=== PATIENT | male | born 1985 | race Caucasian/White ===

== ENCOUNTER 2025-09-13 08:19 | Emergency (ER) | payer SELFPAY ==
[2025-09-13 08:24] VITALS: BP 123/82; PULSE 66; TEMP 36.4; O2SAT 97; BMI 25.1
[2025-09-13] MEDS: FAMOTIDINE/PF 20 MG/2 ML VIAL IV (08:43)
[2025-09-13] MEDS: 0.9 % SODIUM CHLORIDE 1,000 ML 1000 ML IV (08:43)
--- OUTSIDE RECORDS SUMMARY | 2025-09-13 08:43 | XMS_ITS | Clinical Summary ---
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 Role Phone Trace Kenny MD Primary Care Provider [phone] Social History Tobacco Use Types Packs/Day Years Used Date Smoking Tobacco: Never Assessed Sex and Gender Information Value Date Recorded Sex Assigned at Not on file Legal Sex Male 6:40 PM EDT Gender Identity Not on file Sexual Orientation Not on file Last Filed Vital Signs Vital Sign Reading Time Taken Comments Blood Pressure 122/82 02/10/2022 12:00 PM EDT Pulse - - Temperature - - Respiratory Rate - - Oxygen Saturation - - Inhaled Oxygen Concentration - - Weight 76.7 kg (169 lb 3.2 oz) 02/10/2022 12:00 PM EDT Height 175.3 cm (5' 9 ) 02/10/2022 12:00 PM EDT Body Mass Index 24.99 02/10/2022 12:00 PM EDT Plan of Treatment Not on file Care Teams Elementary Classroom Teacher Relationship Specialty Start Date End Date Trace Kenny MD [address] [place] [id number] PCP - General Family Medicine 04/07/23
[2025-09-13 08:49] LABS: Hematocrit 45.6 % (42.0-54.0); Hemoglobin 15.8 g/dL (14.0-18.0); Immature Granulocytes Abs Auto 0.04 10^3/uL (0.00-0.03); Immature Granulocytes Pct Auto 0.5 % (0.0-0.5); Lymphocytes Absolute Auto 2.5 10^3/uL (1.2-3.8); Mean Corpuscular HGB Conc 34.6 g/dL (29.9-35.2); Mean Corpuscular Hemoglobin 28.0 pg (25.9-34.0); Mean Corpuscular Volume 80.7 fL (80.0-94.0); Platelet Count 318 10^3/uL (150-450); Red Blood Count 5.65 10^6/uL (4.70-6.10); White Blood Count 8.9 10^3/uL (4.0-11.0)
[2025-09-13 08:54] LABS: Alanine Aminotransferase 49 U/L (16-63); Albumin Globulin Ratio 0.9; Albumin Level 3.8 g/dL (3.4-5.0); Alkaline Phosphatase 85 U/L (46-116); Anion Gap 15.9; Aspartate Amino Transferase 31 U/L (15-37); Blood Urea Nitrogen 13.0 mg/dL (7.0-18.0); Calcium 8.9 mg/dL (8.5-10.1); Carbon Dioxide 25.8 mmol/L (21.0-32.0); Chloride 99 mmol/L (98-107); Estimated GFR (African America >60 (>=60 mL/min/1.73m^2); Estimated GFR (Non-African Ame >60 (>=60 mL/min/1.73m^2); Globulin 4.3 g/dL; Glucose 106 mg/dL (74-106); Lipase 21.0 U/L (16.0-77.0); Potassium 3.7 mmol/L (3.5-5.1); Sodium 137 mmol/L (136-145); Total Protein 8.1 g/dL (6.4-8.2)
--- NOTE | 2025-09-13 08:59 | XR_ITS ---
XR/XR abdomen 1V IMPRESSION: No acute process. Impression dictated by: Shahram Staton Jr., D.O. 09/13/2025 9:33 AM Dictation [facility] Electronically authenticated by: [id number] Y Date: 09/13/2025 09:33
--- NOTE | 2025-09-13 09:43 | ED.NAVMDI1 ---
HPI - Nausea/Vomiting/Diarrhea General Chief complaint: Nausea/Vomiting/Diarrhea Stated complaint: NAUSEA, VOMITING Time Seen by Provider: 09/13/25 08:30 Source: patient Mode of arrival: walk-in Limitations: no limitations History of Present Illness HPI Narrative: The patient is a 40-year-old male presented to the ER with a 1 day history of nausea vomiting that started last night after he has been exposed to his son who had similar symptoms, the patient mentioned that multiple family members as well has similar symptoms but he is only 1 definitely able to keep anything in The patient denies any fever chills or any other concern he is complaining some epigastric discomfort that have started after a few episode of vomiting he did mention some streaks of blood in his vomiting after multiple times No other concerns Related Data Previous Rx's ?Medication ?Instructions ?Recorded famotidine 20 mg tablet (Pepcid) 20 mg PO BID #20 tabs 09/13/25 ondansetron 4 mg disintegrating 4 mg PO Q8H PRN nausea and 09/13/25 tablet vomiting 48 hours #10 tabs Allergies Allergy/AdvReac Type Severity Reaction Status Date / Time naproxen (From Aleve) Allergy Intermediate Rash Verified 09/13/25 08:24 Review of Systems ROS Status of ROS 10 or more systems reviewed and unremarkable except as noted in history and below PFSH PFSH Social History Little interest or pleasure in doing things: not at all Feeling down, depressed, or hopeless: not at all Exam Narrative Exam Narrative: Nurses notes and vital signs reviewed and patient is not hypoxic. General: Well-appearing and in no apparent distress. Skin: Warm, dry, no pallor noted. No rash. Head: Normocephalic, atraumatic. Neck: Supple, non-tender. Cardiovascular: Regular Rate and Rhythm without murmur, gallop or rub. Respiratory: No accessory muscle use or respiratory distress. Lungs are clear to auscultation, no wheezing, rales or rhonchi Chest Wall: no tenderness Back: No midline thoracic or lumbar vertebral tenderness. No CVA tenderness Musculoskeletal: normal ROM, no calf or popliteal tenderness, no lower extremity edema/swelling GI: Abdomen is soft, non-distended. Normal bowel sounds. No masses appreciated. No tenderness to palpation. No rebound, guarding, or rigidity noted. Neurological: A&O x4. No cranial nerve dysfunction observed. No truncal ataxia. Moves all extremities. Sensation intact. Psychiatric: Cooperative and interactive. Normal mood and affect. Constitutional Vital Signs, click to edit/add: Last Vital Signs Temp 97.5 F L 09/13/25 08:24 Pulse 66 09/13/25 08:24 Resp 18 09/13/25 08:24 BP 123/82 09/13/25 08:24 Pulse Ox 97 09/13/25 08:24 O2 Del Method Room Air 09/13/25 08:24 Course Vital Signs Vital signs: Vital Signs Temperature 97.5 F L 09/13/25 08:24 Pulse Rate 66 09/13/25 08:24 Respiratory Rate 18 09/13/25 08:24 Blood Pressure 123/82 09/13/25 08:24 Pulse Oximetry 97 09/13/25 08:24 Oxygen Delivery Method Room Air 09/13/25 08:24 Temperature 97.5 F L 09/13/25 08:24 Pulse Rate 66 09/13/25 08:24 Respiratory Rate 18 09/13/25 08:24 Blood Pressure 123/82 09/13/25 08:24 Pulse Oximetry 97 09/13/25 08:24 Oxygen Delivery Method Room Air 09/13/25 08:24 MDM - Nausea/Vomiting/Diarrhea MDM Narrative Medical decision making narrative: CBC and chemistry showed no acute pathology The patient presentation is concerning mostly for gastroenteritis symptoms The patient did had some epigastric discomfort and that with x-ray of the abdomen obtained that showed no acute pathology or perforation Patient provided IV fluid hydration. Zofran and Pepcid after which she was feeling much better The patient instructed to come back in case any worsening symptoms or new symptoms to the ER Patient to start with liquid diet then treat his diet with time. But I did also explain to the patient that in case of any worsening or any new symptoms the patient to come back to the ER as the initial evaluation shows no acute pathology but there is multiple pathology can present with nausea and vomiting Lab Data Labs: Lab Results 09/13/25 Range/Units 08:30 WBC 8.9 (4.0-11.0) 10^3/uL RBC 5.65 (4.70-6.10) 10^6/uL Hgb 15.8 (14.0-18.0) g/dL Hct 45.6 (42.0-54.0) % MCV 80.7 (80.0-94.0) fL MCH 28.0 (25.9-34.0) pg MCHC 34.6 (29.9-35.2) g/dL RDW 12.9 (11.0-15.0) % Plt Count 318 (150-450) 10^3/uL MPV 10.5 (9.5-13.5) fL Neut % (Auto) 55.0 (43.0-75.0) % Lymph % (Auto) 27.7 (20.5-60.0) % [place] % (Auto) 14.0 H (1.7-12.0) % Eos % (Auto) 1.9 (0.9-7.0) % Baso % (Auto) 0.9 (0.2-2.0) % Neut # (Auto) 4.9 (1.4-6.5) 10^3/uL Lymph # (Auto) 2.5 (1.2-3.8) 10^3/uL [place] # (Auto) 1.2 H (0.3-0.8) 10^3/uL Eos # (Auto) 0.2 (0.0-0.7) 10^3/uL Baso # (Auto) 0.1 (0.0-0.1) 10^3/uL Abs Immat Gran (auto) 0.04 H (0.00-0.03) 10^3/uL Imm/Tot Granulo (auto) 0.5 (0.0-0.5) % Sodium 137 (136-145) mmol/L Potassium 3.7 (3.5-5.1) mmol/L Chloride 99 (98-107) mmol/L Carbon Dioxide 25.8 (21.0-32.0) mmol/L Anion Gap 15.9 BUN 13.0 (7.0-18.0) mg/dL Creatinine 1.17 (0.70-1.30) mg/dL Est GFR ( Amer) >60 (>=60 mL/min/1.73m^2) Est GFR (Non-Af Amer) >60 (>=60 mL/min/1.73m^2) BUN/Creatinine Ratio 11.1 Glucose 106 (74-106) mg/dL Calcium 8.9 (8.5-10.1) mg/dL Total Bilirubin 0.4 (0.2-1.0) mg/dL AST 31 (15-37) U/L ALT 49 (16-63) U/L Alkaline Phosphatase 85 (46-116) U/L Total Protein 8.1 (6.4-8.2) g/dL Albumin 3.8 (3.4-5.0) g/dL Globulin 4.3 g/dL Albumin/Globulin Ratio 0.9 Lipase 21.0 (16.0-77.0) U/L Discharge Plan Discharge Chief Complaint: Nausea/Vomiting/Diarrhea Clinical Impression: Gastroenteritis Patient Disposition: Home, Self-Care Time of Disposition Decision: 09:43 Condition: Good Prescriptions / Home Meds: New famotidine [Pepcid] 20 mg tablet 20 mg PO BID Qty: 20 0RF ondansetron 4 mg tablet,disintegrating 4 mg PO Q8H PRN (Reason: nausea and vomiting) 2 Days Qty: 10 0RF Print Language: Burmese Instructions: Gastroenteritis (DC), Acute Nausea and Vomiting (DC) Referrals: TRENTON BLACKWELL [Primary Care Provider, Family Practice] - 1 week
[2025-09-13 10:07] VITALS: BP 114/65; PULSE 55; O2SAT 100
== END 2025-09-13 10:08 | disposition home or self-care (01) ==
PROVIDERS: Emergency Provider Emergency Medicine; PCP Family Medicine
DX: K52.9 Noninfective gastroenteritis and colitis, unspecified (principal); R10.13 Epigastric pain
CPT/HCPCS: 36415; 74018; 80053; 83690; 85025; 96361; 96374; 96375; 99284; J2405; J3490